=== PATIENT | female | born 1990 | race Caucasian/White ===

== ENCOUNTER 2022-08-16 11:44 | Outpatient (CLI) | payer OTHER, SELFPAY ==
--- NOTE | ~2022-08-16 | MMUS_ITS ---
EXAMINATION: MM diagnostic martha BI w jett, US breast BI complete HISTORY: Palpable right breast abnormality with focal area of firmness around the right nipple. TECHNIQUE: Additional 3-D tomosynthesis images of the breasts were performed and synthetic 2-D images were generated. CAD analysis was submitted and interpreted. High resolution bilateral complete breas t ultrasound was performed. COMPARISON: None BREAST PARENCHYMAL COMPOSITION: The breasts are heterogeneously dense, which may obscure small masses FINDINGS: MAMMOGRAPHIC FINDINGS: There are no suspicious masses, calcifications or architectural distortion in either breast to sugges t malignancy. ULTRASOUND: Complete bilateral US of all 4 quadrants of the breasts and retroareolar region was reviewed. Left br east is composed of normal heterogeneous echotexture without focal mass. Right breast: In the area of palpable concern inferior to the nipple located superficial is an oval hypoechoic mass with mixed po sterior attenuation measuring 1.6 x 1 x 0.3 cm. No internal vascularity. Parallel orientation. IMPRESSION: 1. Hypoechoic right breast mass in the area of palpable concern inferior to the right nipple. 2. Ultrasound-guided right breast biopsy recommended. BI-RADS category 4, suspicious findings. Reviewed, dictated and finalized at location A. IMPRESSION: 1. Hypoechoic right breast mass in the area of palpable concern inferior to the right nipple. 2. Ultrasound-guided right breast biopsy recommended. BI-RADS category 4, suspicious findings.
== END 2022-08-16 11:45 | disposition home or self-care (01) ==
PROVIDERS: PCP Nurse Practitioner Family; Visit Provider Nurse Practitioner
DX: R92.8 Other abnormal and inconclusive findings on diagnostic imaging of breast (principal); N63.41 Unspecified lump in right breast, subareolar
CPT/HCPCS: 76641; 77062; 77066; G0279

== ENCOUNTER 2023-12-28 08:22 | Emergency (ER) | payer OTHER, SELFPAY ==
[2023-12-28 08:27] VITALS: BP 111/77; PULSE 85; RESP 18; TEMP 36.2; O2SAT 99
--- NOTE | 2023-12-28 09:09 | ED.URI ---
HPI - URI/Sore Throat General Chief Complaint: Upper Respiratory Infection Stated Complaint: Strep Symptoms Time Seen by Provider: 12/28/23 09:09 Source: patient Mode of arrival: ambulatory Limitations: no limitations History of Present Illness HPI Narrative: 31-year-old female presents to [facility] with complaint of headache pain 2/10 and sore throat since yesterday. Pt endorses that 2 children at home have tested positive for strep 2 days ago. Patient denies allergies , congestion, dizziness, or any GI complaints at this time. Patient denies any pertinent medical history. Patient able to tolerate fluids by mouth. Patient has not tried to treat symptoms at home. Related Data Home Medications Medication Instructions Recorded Confirmed sumatriptan succinate 100 mg tablet mg PO 12/28/23 Allergies Allergy/AdvReac Type Severity Reaction Status Date / Time No Known Allergies Allergy Verified 12/28/23 08:42 Review of Systems Review of Systems: All systems reviewed & are unremarkable except as noted in HPI and below Constitutional: Constitutional: Reports no additional constitutional complaints, Denies body ache(s), Denies chills, Reports headache(s) and Denies night sweats Eyes: Eyes: Reports no additional eye complaints ENT: Reports system reviewed and no additional complaints, except as documented and Reports sore throat Cardiovascular: Cardiovascular: Reports no additional cardiovascular complaints, Denies chest pain and Denies dyspnea Respiratory: Respiratory: Reports no additional respiratory complaints, Denies cough and Denies dyspnea Musculoskeletal: Musculoskeletal: Reports no additional musculoskeletal complaints Neurologic: Reports system reviewed and no additional complaints, except as documented Psychiatric: Psychiatric: Reports no additional psychiatric complaints PMFSH Social History Social History (System 02/28/23 @ 07:50 by Nino Robles) Second hand tobacco smoke exposure: No Comments At the time of my signature, I reviewed and agree with the nursing past medical, surgical, social, and family history. There is no relevant family history pertinent to the patient complaint. Exam Const: General: cooperative, healthy appearing, comfortable, no acute distress, alert, tired appearing and well nourished Nutritional Appearance: well nourished Orientation/consciousness: patient oriented x3 Limitations: no limitations HENMT: Head: normal to inspection Ears: external ears normal Face/Nose/Sinus: Normal external nose present, Normal nares present, normal facial exam, No erythema and No edema Face and sinus: normal facial exam, no erythema and no edema Mouth: Yes Normal oral and palatal mucosa present Throat: posterior oropharynx abnormal erythema Eyes: General: appearance normal, both eyes and all related structures Neck: Neck: normal visual inspection, full ROM and no meningeal signs Lymphatic: no lymphadenopathy noted and no lymphedema noted Chest: Chest palpation & inspection: normal inspection of the chest Resp: Effort & Inspection: normal respiratory effort and able to speak in complete sentences Auscultation: clear to auscultation bilaterally Cardio: Jugular venous distension: no JVD Rate: regular rate Rhythm: regular rhythm Peripheral pulses: Peripheral pulses 2+ throughout Back/Spine/Pelvis: Cervical Spine: cervical ROM normal Skin: General skin exam: normal color, no rashes or lesions noted and turgor normal Neuro: General: patient oriented x3, gait normal, moves all extremities and no meningeal signs Speech: normal speech Gait exam (Neuro): Normal gait present Extrem: General: normal to inspection, full ROM and capillary refill normal Psych: Appearance: grossly normal and well kempt Course Course Emergency Course: Some parts of this dictation were generated by voice recognition software and may contain typographical and/or grammatical inaccuracies. Level of Care:
== END 2023-12-28 09:33 | disposition home or self-care (01) ==
PROVIDERS: Emergency Provider Nurse Practitioner Family; PCP Nurse Practitioner Family
DX: J06.9 Acute upper respiratory infection, unspecified (principal)
CPT/HCPCS: 87081; 87880; 99213; G0463

== ENCOUNTER 2024-05-22 11:14 | Emergency (ER) | payer OTHER, SELFPAY ==
--- NOTE | 2024-05-22 11:29 | ED.FEMALEGU ---
HPI - Female Genitourinary General Chief complaint: Urogenital-Female Stated complaint: Uti Symptoms Time Seen by Provider: 05/22/24 11:29 Source: patient Mode of arrival: ambulatory Limitations: no limitations History of Present Illness HPI Narrative: Liliya is a 33-year-old female patient presenting to the clinic today with complaints of urinary burning and frequency/urgency x1 month. She denies any associated genital itching, flank pain, suprapubic pain, shortness of breath, chest pain, or fevers/chills. She has been taking OTC cranberry pills to attempt to alleviate her symptoms. She has an IUD that was placed approximately 9 months ago. Related Data Home Medications Medication Instructions Recorded Confirmed metformin 500 mg tablet 500 mg PO DAILY 05/22/24 05/22/24 spironolactone 100 mg tablet 100 mg PO DAILY 05/22/24 05/22/24 Allergies Allergy/AdvReac Type Severity Reaction Status Date / Time No Known Allergies Allergy Verified 05/22/24 11:31 Review of Systems Review of Systems: Pertinent positives per HPI. Patient denies any fever, chills, rash, headache, visual changes, dizziness, cough, runny nose, sore throat, shortness of breath, chest pain, palpitations, nausea, vomiting, diarrhea, constipation, or abdominal pain PMFSH Social History Social History Second hand tobacco smoke exposure: No Comments At the time of my signature, I reviewed and agree with the nursing past medical, surgical, social, and family history. There is no relevant family history pertinent to the patient complaint. Exam Narrative: General: Well-developed, well nourished, in no apparent distress. Head: Normocephalic, atraumatic. Cardio: Regular rate and rhythm, s1 and s2 normal, no murmur appreciated. Resp: Clear to auscultation bilaterally, no rhonchi, rales, wheezing or rubs. Abdomen: No CVA tenderness. Course Course Emergency Course: Portions of this record may have been created with voice recognition software. Level of Care: Express Care Visit Vital Signs Vital signs: Vital Signs Temperature 36.9 C 05/22/24 11:30 Pulse Rate 73 05/22/24 11:30 Respiratory Rate 16 05/22/24 11:30 Blood Pressure 115/81 05/22/24 11:30 Pulse Oximetry 99 05/22/24 11:30 Oxygen Delivery Room Air 05/22/24 11:30 Temperature 36.9 C 05/22/24 11:30 Pulse Rate 73 05/22/24 11:30 Respiratory Rate 16 05/22/24 11:30 Blood Pressure 115/81 05/22/24 11:30 Pulse Oximetry 99 05/22/24 11:30 Oxygen Delivery Room Air 05/22/24 11:30 Vital signs reviewed MDM - Female Genitourinary MDM Narrative Medical decision making narrative: At the time of visit patient is resting comfortably on the exam table. Patient appears to be nontoxic. Labs: UA dip shows trace of leukocytes. We will send urine for culture. Urine test is negative in the clinic today. Plan: I suspect patient has dysuria. Prescription for Pyridium was sent to the pharmacy. We will wait for culture and if culture comes back positive we can call the patient and place her on antibiotics at that time. Supportive measures were discussed with the patient and they voiced understanding discharge instructions and agrees to treatment plan. Return precautions reviewed Differential Diagnosis Differential diagnosis: Likely urinary tract infection, cystitis and other (Pyelonephritis) Discharge Plan Discharge Clinical Impression: Dysuria Patient Disposition: Home, Self-Care Condition: Stable Instructions: Antibiotic Form, Dysuria (ED) Additional Instructions: UA shows a trace of leukocytes without blood or protein. We will send urine for culture. Urine test was negative May take Pyridium as needed Increase fluids and stay well hydrated Wipe front to back. May use wet wipes. Avoid tub baths If sexually active- pee before and after intercourse
[2024-05-22 11:30] VITALS: BP 115/81; PULSE 73; RESP 16; TEMP 36.9; O2SAT 99
[2024-05-22 12:07] LABS: EDUAAPPEAR Clear; EDUABILI Negative; EDUABLOOD Negative; EDUACOLOR1 Light/Pale; EDUAGLUCOSE Negative; EDUAKETONE Negative; EDUALEUKO Trace; EDUANITRATE Negative; EDUAPH 6.5; EDUAPROTEIN Negative; EDUAUROBILI 0.2
== END 2024-05-22 12:01 | disposition home or self-care (01) ==
PROVIDERS: Emergency Provider Nurse Practitioner Family; PCP Nurse Practitioner Family
DX: R30.0 Dysuria (principal); E28.2 Polycystic ovarian syndrome
CPT/HCPCS: 81003; 81025; 87086; 99213; G0463